=== PATIENT | female | born 1945 | race Caucasian/White ===

== ENCOUNTER 2021-06-12 21:24 | Emergency (ER) | payer MEDICARE, OTHER ==
[2021-06-12] MEDS ORDERED: cloNIDine 0.1 MG Tab PO ONE (21:46)
[2021-06-12 21:59] LABS: CHLORIDE,CL 104 mEq/L (98-106); SODIUM,NA 143 mEq/L (136-145)
--- NOTE | 2021-06-12 22:22 | EDM.PDOC ---
ED HPI GENERAL MEDICAL PROBLEM - General Chief Complaint: General Stated Complaint: elevated BP Time Seen by Provider: 06/12/21 21:55 Source of Information: Reports: Patient, RN History Limitations: Reports: No Limitations - History of Present Illness INITIAL COMMENTS - FREE TEXT/NARRATIVE: States that she has been having issues with her BP for several weeks. Was to Dr. Haywood and had lisinopril increased and then reacted to it with swollen face. Started on Losartan and increased to 50 mg bid. Stopped her diuretic and has not had any increase in swelling. Today she noted it was higher and she didn't feel as good as she normally does. She took her evening dose of meds and an hour later it was actually going up by her account. She was concerned so came back to the ER. She does have an appt with Dr. Haywood tomorrow. She has not had any chest pain. No edema. Location: Reports: Generalized - Related Data Allergies Allergy/AdvReac Type Severity Reaction Status Date / Time JAYLON Inhibitors Allergy Facial Verified 06/12/21 22:28 Swelling hydrochlorothiazide Allergy Hives Verified 06/12/21 22:27 [From Dyazide] Sulfa (Sulfonamide Allergy Rash Verified 06/12/21 22:27 Antibiotics) triamterene [From Dyazide] Allergy Hives Verified 06/12/21 22:27 Home Meds: Home Meds Estrogens, Conjugated [Premarin] 1 tab PO ASDIRECTED 04/15/16 [History] Levothyroxine Sodium [Levoxyl] 0.88 mcg PO DAILY 04/15/16 [History] Nebivolol [Bystolic] 5 mg PO DAILY 04/15/16 [History] Biotin 1 mg PO DAILY 06/22/16 [History] Calcium Carb, Citrate/Vit D3 [Citracal + D ER] 2 tab PO DAILY 06/22/16 [History] Cholecalciferol (Vitamin D3) [Vitamin D3] 4,000 units PO DAILY 06/22/16 [History] Fish Oil/[place]-3 Fatty Acids [Fish Oil] 1 gm PO DAILY 06/22/16 [History] Magnesium Oxide [Magnesium] 500 mg PO DAILY 06/22/16 [History] Vitamin B Complex Vit C No.4 [Super B Complex] 150 mg PO DAILY 06/22/16 [History] atorvaSTATin [Lipitor] 10 mg PO BEDTIME 06/22/16 [History] dilTIAZem HCL [Cartia Xt] 180 mg PO DAILY 06/22/16 [History] flaxseed oiL [Flaxseed Oil] 1,000 mg PO DAILY 06/22/16 [History] Nebivolol HCl [Bystolic] 5 mg PO DAILY 06/12/21 [History] Past Medical History HEENT History: Reports: Cataract, Hard of Hearing, Impaired Vision Cardiovascular History: Reports: Afib, High Cholesterol, Hypertension Gastrointestinal History: Reports: Chronic Diarrhea Endocrine/Metabolic History: Reports: Hyperthyroidism - Past Surgical History HEENT Surgical History: Reports: Cataract Surgery Social & Family History - Family History Family Medical History: No Pertinent Family History ED ROS GENERAL - Review of Systems Review Of Systems: See Below Constitutional: Denies: Fever, Chills, Weakness, Fatigue HEENT: Reports: No Symptoms Respiratory: Reports: No Symptoms Cardiovascular: Reports: Blood Pressure Problem. Denies: Chest Pain, Edema, Lightheadedness GI/Abdominal: Reports: No Symptoms Musculoskeletal: Reports: No Symptoms Skin: Reports: No Symptoms Neurological: Reports: No Symptoms ED EXAM, GENERAL - Physical Exam Exam: See Below Exam Limited By: No Limitations General Appearance: Alert, WD/WN, No Apparent Distress Respiratory/Chest: No Respiratory Distress, Lungs Clear, Normal Breath Sounds Cardiovascular: Regular Rate, Rhythm, No Edema Peripheral Pulses: 3+: Carotid (L), Carotid (R) GI/Abdominal: Normal Bowel Sounds, Soft, Non-Tender Extremities: Normal Inspection, Normal Range of Motion, No Pedal Edema, Normal Capillary Refill Neurological: Alert, Oriented Skin Exam: Warm, Dry, Intact Course - Vital Signs Last Recorded V/S: Last Vital Signs Temp Pulse Resp BP 203/84 H 06/12/21 21:55 Pulse Ox - Orders/Labs/Meds Labs: Laboratory Tests 06/12/21 06/12/21 Range/Units 21:38 21:38 WBC 9.7 (4.0-11.0) 10^3/uL RBC 4.15 (4.00-5.50) x10^6/uL Hgb 12.9 (12.0-16.0) g/dL Hct 38.1 (37.0-47.0) % MCV 91.8 (83.0-97.0) fL MCH 31.1 (27.0-32.0) pg MCHC 33.9 (32.0-36.0) g/dL RDW Coeff of Madhu 12.6 (11.0-15.0) % Plt Count 326 (150-400) 10^3/uL Immature Gran % (Auto) 0.7 (0.0-4.9) % Neut % (Auto) 54.1 (41-71) % Lymph % (Auto) 34.1 (24-44) % [place] % (Auto) 8.1 (0-10) % Eos % (Auto) 2.4 (0-6) % Baso % (Auto) 0.6 (0-1) % Neut # (Auto) 5.25 (1.80-8.00) x10^3/uL Lymph # (Auto) 3.31 (0.60-5.00) 10^3/uL [place] # (Auto) 0.79 (0.00-1.50) 10^3/uL Eos # (Auto) 0.23 (0.00-1.50) 10^3/uL Baso # (Auto) 0.06 (0.00-0.50) 10^3/uL Immature Gran # (Auto) 0.07 (0.00-0.49) 10^3/uL Sodium 143 (136-145) mEq/L Potassium 3.7 (3.5-5.0) mEq/L Chloride 104 (98-106) mEq/L Carbon Dioxide 32 (21-32) mmol/L BUN 16 (7-18) mg/dL Creatinine 1.2 H (0.6-1.0) mg/dL Est Cr Clr Drug Dosing TNP Estimated GFR (MDRD) 44 L (>=60) mL/min Glucose 110 H (75-99) mg/dL Calcium 9.0 (8.4-10.1) mg/dL Magnesium 1.9 (1.8-2.4) mg/dL Total Bilirubin 0.3 (0.0-1.0) mg/dL AST 14 L (15-37) U/L ALT 29 (12-78) U/L Alkaline Phosphatase 59 (46-116) U/L Lactate Dehydrogenase 174 (100-190) U/L Creatine Kinase 45 (21-215) U/L Troponin I High Sens 5.5 (<=51) pg/mL Total Protein 7.0 (6.4-8.2) g/dL Albumin 3.3 L (3.4-5.0) g/dL Meds: Medications Discontinued Medications Generic Name Dose Route Start Last Admin Trade Name Daniel PRN Reason Stop Dose Admin Clonidine HCl 0.1 mg 06/12/21 21:46 06/12/21 21:55 Clonidine 0.1 Mg Tab PO 06/12/21 21:47 0.1 mg NOW ONE Administration - Re-Assessments/Exams Free Text/Narrative Re-Assessment/Exam: 06/12/21 23:12 BP has improved. Will discharge at this time. Discussed that she needs to come in tomorrow to have BP rechecked. Departure - Departure Time of Disposition: 23:07 Disposition: Home, Self-Care 01 Condition: Fair Clinical Impression: Hypertension Qualifiers: Hypertension type: primary hypertension Qualified Code(s): I10 - Essential (primary) hypertension - Discharge Information *PRESCRIPTION DRUG MONITORING PROGRAM REVIEWED*: Not Applicable *COPY OF PRESCRIPTION DRUG MONITORING REPORT IN PATIENT ELOINA: Not Applicable Instructions: Hypertension, Adult, [id number] Additional Instructions: stop the diltiazem start amlodipine 10 mg daily. Start in the AM Come to the clinic tomorrow afternoon and have your BP checked and then will adjust and order larger supply of meds for you avoid caffeine recheck sooner if any concerns. Sepsis Event Note (ED) - Focused Exam Vital Signs: Vital Signs BP 06/12/21 21:55 203/84 H - Problem List & Annotations (1) Hypertension SNOMED Code(s): 98679463 Code(s): I10 - ESSENTIAL (PRIMARY) HYPERTENSION Status: Acute Priority: High Qualifiers: Hypertension type: primary hypertension Qualified Code(s): I10 - Essential (primary) hypertension - Problem List Review Problem List Initiated/Reviewed/Updated: Yes
[2021-06-12 22:27] VITALS: PULSE 72
[2021-06-12] MEDS ORDERED: amLODIPine 10 MG Tab PO ONE (22:47)
[2021-06-12] MEDS ORDERED: amLODIPine 10 MG Tab ONE (23:45)
[2021-06-12 23:50] VITALS: BP 175/86
[2021-06-13] MEDS ORDERED: amLODIPine 10 MG Tab PO SCH (20:00)
== END 2021-06-12 23:40 | disposition home or self-care (01) ==
LOC: CC.ED 21:24
DX: I10 Essential (primary) hypertension (principal); I48.91 Unspecified atrial fibrillation; E78.00 Pure hypercholesterolemia, unspecified; E03.9 Hypothyroidism, unspecified; Z88.2 Allergy status to sulfonamides; Z88.8 Allergy status to other drugs, medicaments and biological substances; Z79.899 Other long term (current) drug therapy
CPT/HCPCS: 36415; 80053; 82550; 83615; 83735; 84484; 85025; 93005; 93010; 99283-25; 99284; A9270-GY